=== PATIENT | female | born 1960 | race Caucasian/White ===

== ENCOUNTER 2020-03-16 12:34 | Outpatient (CLI) | payer MEDICARE, SELFPAY ==
--- NOTE | 2020-03-21 14:14 | WPDSIXMINUTE ---
Six Minute Walk Six Minute Walk: DOS: 03/16/2020 REQUESTING: Vin Gomes REASON FOR TESTING: Exertional dyspnea SIX MINUTE WALK This test was conducted per ATS guidelines. The initial saturation was 100% and pulse was 87. The patient walked for 6 minutes without stopping. The lowest saturation was 86% after walking 4 minutes. The saturation remained lower than expected between 87-88% for a minute and a half. During the last minute, her saturation [id number]%. With resting, she recovered to her baseline saturation of 100%. Heart rate ranged from 84 to 106. At the end of recovery, heart rate returned to baseline. Distance walked was 1000 feet/ 302 meters. IMPRESSION: Desaturation with mild hypoxemia to 86% transiently during walking, which was not sustained long enough to require oxygen therapy. The patient had recovery of her saturation while continuing to walk by the end of the 6 minutes. Distance walked was 1000 feet/304 meters. Clinical correlation is recommended.
--- NOTE | 2020-03-21 14:31 | WPDPFTINT ---
PFT Interpretation PFT Interpretation: DOS: 03/16/2020 REQUESTING: Vin Gomes REASON FOR TESTING: Shortness of breath PULMONARY FUNCTION TESTS Results are reliable and reproducible. Spirometry: FEV1 is 77%, 1.6 L mildly reduced. FVC is 81% normal. FEV1/FVC% is 71%. [id number]% is severely decreased 37%. After bronchodilator therapy there is a non statistically significant increase in flows. Lung volumes: TLC increased 123% consistent with hyperinflation. Residual volume severely increased 193% consistent with air trapping. Airway resistance increased 187% Diffusion: DLCO is 59%, moderately reduced. Flow volume loop: scooping of the expiratory limb consistent with obstruction. IMPRESSION: Mild obstructive ventilatory impairment, which is severe in the small airways, with mild hyperinflation, severe air trapping and moderate diffusion impairment. Lack of response to bronchodilator should not preclude use if clinically indicated. This pattern may be seen in COPD. Kavitha Carreno MD
== END 2020-03-16 12:35 | disposition home or self-care (01) ==
PROVIDERS: PCP Family Medicine; Visit Provider Internal Medicine Critical Care Medicine
DX: J44.9 Chronic obstructive pulmonary disease, unspecified (principal); R94.2 Abnormal results of pulmonary function studies
CPT/HCPCS: 94060; 94618; 94726; 94729

== ENCOUNTER 2020-06-04 07:46 | Outpatient (CLI) | payer MEDICARE, SELFPAY ==
--- NOTE | 2020-06-21 00:15 | WPDHOMESLEEP ---
Sleep Study - Home Date of Study: 06/04/20 Ordering Provider: Chano Rehman MD Interpreting Physician: Kavitha Carreno MD Home Sleep Study Type: Apnea Link Air Height: 1.55 m Weight: 104.78 kg Body Mass Index: 43.6 Neck Circumference (inches): 13.7 [place]: 8 Reason for Sleep Study history of sleep apnea Prior home sleep test 06/10/2017 showed mild obstructive sleep apnea with an AHI of 5.5 with heavy snoring and multiple oxygen desaturation to a minimum of 79% Sleep History Sara Benson is a 59 year-old female with COPD and HI. She frequently snores and is frequently loud enough that others complain about it. She does not awaken at night with heartburn belching or coughing however she frequently awakens from sleep feeling short of breath. She has difficulty falling asleep due to her restless legs and she has excessive daytime sleepiness. In the past she has had abnormal behaviors at night. She rarely has trouble sleep with a cold. She does not gasp for breath at night but she occasionally has breathing problems at night observed by others. She rarely sweats excessively at night. She does not notice her heart pounding or beating irregularly at night. She occasionally falls asleep during the day, occasionally involuntarily occasionally while driving. she does not fall asleep during physical effort. She does not have loss of muscle tone was trauma motion. She does not have daytime difficulties due to excessive sleepiness, currently is disabled. She does not feel paralyzed on waking or falling asleep. She does not have vivid dreamlike scenes upon awakening or falling asleep. She has never freight to go to sleep, does not have nightmares, does not remember her dreams and does not not have racing thoughts. She does not feel sad depressed or anxious. She does not have muscular tension. She frequently notices parts of her body jerking, frequently kicks at night, frequently has crawly and achy feelings in her legs. She occasionally has leg pain at night. She does not have morning jaw pain. She does not grind her teeth during sleep. She constantly is bothered by pain during the day. She is rarely awakened by pain at night. She frequently wakes up feeling stiff in the morning constantly with sore achy muscles and consult with neck and spine pain. She takes sedatives. Normal bedtime is 11:00 p.m. falling asleep within 10 minutes waking once for the trip to the bathroom. She will stay awake for 5 minutes. She awakens in the morning at 8:00 a.m.. On weekends she will stay awake later to 1:00 a.m. She wakes at the same time. She estimates 6-8 hours of sleep at night. She denies taking naps. A short nap is not refreshing. On occasion she wakes up feeling refreshed. She feels better in the afternoon than in the morning. Habits: She previously smoked cigarettes, no longer smokes tobacco but does use E cigarettes; Caffeine 5 servings a day. Has used alcohol; no recreational drugs. [facility] Past Medical History Medical History (Updated 06/21/20 @ 00:40 by Kavitha Carreno MD) Anemia COPD (chronic obstructive pulmonary disease) Depression Essential hypertension Exercise hypoxemia GERD (gastroesophageal reflux disease) Hiatal hernia Hyperlipidemia Pain in left shoulder Restless legs syndrome Seizure disorder Sleep apnea Surgical History Surgical History (Updated 06/21/20 @ 00:38 by Kavitha Carreno MD) Herniated lumbar intervertebral disc History of appendectomy History of bilateral tubal ligation History of carpal tunnel surgery Previous back surgery S/P hip replacement Aug 2019, Right hip replaced S/P knee surgery 2018; arthroscopic surgery Family History Family History Father Heart disease Grandparent Heart disease Mother Cancer Age related osteoporosis Other Colon cancer Grandparent Diabetes mellitus Social History Social History (Updated 06/07
[2020-06-21 00:55] VITALS: BMI 43.6
== END 2020-06-04 07:47 | disposition home or self-care (01) ==
LOC: ANHCSM 07:47
PROVIDERS: PCP Family Medicine; Visit Provider Internal Medicine Critical Care Medicine
DX: G47.30 Sleep apnea, unspecified (principal)
CPT/HCPCS: 95806

== ENCOUNTER → 2021-04-03 11:20 | Outpatient (CLI) | payer MEDICARE, SELFPAY ==
--- NOTE | ~2021-04-03 | XR_ITS ---
EXAMINATION: XR thoracic spine 2V DATE: 04/03/2021 12:16 INDICATION: Thoracic back pain TECHNIQUE: AP, lateral and lateral swimmer's views of the thoracic spine were obtained. COMPARISON: 07/25/2013 FINDINGS: There is no fracture, dislocation, or subluxation. Mild loss of intervertebral disc space h eight is seen at multiple levels in the thoracic spine with interval worsening. Small degenerative os teophytes project from the anterior endplates of multiple vertebral bodies. The thoracic vertebral isa dy heights are normal. There are changes of interval vertebroplasty at L1. Neurostimulator leads end in the central spinal canal at the level of the T8 vertebral body. IMPRESSION: 1. Moderate thoracic spondylosis with interval worsening. Reviewed, dictated and finalized at location A.
--- NOTE | ~2021-04-03 | XR_ITS ---
EXAMINATION: XR lumbar spine 2-3V DATE: 04/03/2021 12:16 INDICATION: Low back pain TECHNIQUE: Anteroposterior and lateral views of the lumbar spine, and cone-down lateral view of the l umbosacral junction were obtained. COMPARISON: 07/25/2013 FINDINGS: There has been interval vertebroplasty change at L1. There is moderate to severe loss of in tervertebral disc space height at L3-4 and L4-5 with interval worsening since the prior examination. An interbody device is present at L5-S1. There is severe facet osteoarthritis. No fracture is identif ied. Calcified atherosclerosis is noted. There are changes of right total hip arthroplasty. A large v olume of colonic stool is present. A neurostimulator device is implanted in the posterior subcutaneou s tissues on the left. Its leads enter the central spinal canal and courses beyond the superior corina n of the radiograph. IMPRESSION: 1. Severe lumbar spondylosis with interval worsening. Reviewed, dictated and finalized at location A.
== END ==
PROVIDERS: PCP Family Medicine; Visit Provider Nurse Practitioner Family
DX: M47.894 Other spondylosis, thoracic region (principal); M47.896 Other spondylosis, lumbar region
CPT/HCPCS: 72070; 72100